=== PATIENT | female | born 1985 | race Caucasian/White ===

== ENCOUNTER 2021-09-10 12:06 | Emergency (ER) | payer OTHER, SELFPAY ==
--- NOTE | 2021-09-10 12:29 | ECG_ITS ---
Test Reason : CHEST PAIN Blood Pressure : / mmHG Vent. Rate : 077 BPM Atrial Rate : 077 BPM P-R Int : 158 ms QRS Dur : 080 ms QT Int : 384 ms P-R-T Axes : 063 006 032 degrees QTc Int : 434 ms Normal sinus rhythm with sinus arrhythmia Minimal voltage criteria for LVH, may be normal variant ( R in aVL ) Possible Left atrial enlargement Borderline ECG No previous ECGs available Referred By: Generic ED Physician Electronically Signed By:AZUL CHÁVEZ MD
[2021-09-10 12:45] VITALS: BP 111/77; PULSE 74; RESP 20; TEMP 36.3; O2SAT 98; BMI 40.7
== END 2021-09-10 15:56 | disposition left against medical advice (07) ==
PROVIDERS: Emergency Provider Emergency Medicine; PCP Family Medicine
DX: R07.89 Other chest pain (principal); R11.0 Nausea
CPT/HCPCS: 93005; 99283